=== PATIENT | female | born 2000 | race Caucasian/White ===

== ENCOUNTER 2021-07-13 14:52 | Emergency (ER) | payer MEDICAID ==
[2021-07-13 14:55] VITALS: BP 133/77; PULSE 78; O2SAT 100
--- NOTE | 2021-07-13 15:03 | ERPHSYRPT ---
- History of Present Illness Time Seen by Provider: 07/13/21 15:02 Source: patient, EMS Exam Limitations: no limitations Patient Subjective Stated Complaint: Pt became dizzy at work but did not have LOC Triage Nursing Assessment: Pt brought to the ER by EMS, vitals wnl, denies pain but states that she is slowly getting a headache, reports still being dizzy, pulses normal, reports drinking plenty of fluids, pt states this happened in the past and her bp was low and potassium was low, doesn't appear to be in any distress Physician History: This is a 20-year-old white female who was at work when she had what was desc ribed as a vasovagal reaction. She has had a history of this in the past when her blood pressure dropped or when she has low potassium. Patient states that she has no pain whatsoever. Patient states that she feels fine now. She has no nausea vomiting or diarrhea. Patient states she has been eating and drinking well for her. Patient was brought in to the emergency department by EMS service. Timing/Duration: today Severity: moderate (During the episode) Character of Deficits: none Deficits: no difficulties Baseline/Normal Cognition: alert oriented x 3 Current Cognition: alert oriented x 3 Baseline Gait: walks w/o assistance Associated Symptoms: denies symptoms Allergies/Adverse Reactions: No Known Drug Allergies Allergy (Verified 07/13/21 15:02) Home Medications: No Reportable Medications [No Reported Medications] 07/13/21 [History] Travel Risk - International Travel Have you traveled outside of the country in past 3 weeks: No - Coronavirus Screening Are you exhibiting any of the following symptoms?: No Close contact with a COVID-19 positive Pt in past 14-21 Days: No - Vaccine Status Have you recieved a Covid-19 vaccination: Yes 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[employer] - Vaccination Dates Date of 2cond Vaccination (if applicable): 02/2021 - Review of Systems Constitutional: No Symptoms Eyes: No Symptoms Ears, Nose, & Throat: No Symptoms Respiratory: No Symptoms Cardiac: No Symptoms Abdominal/Gastrointestinal: No Symptoms Genitourinary Symptoms: No Symptoms Musculoskeletal: No Symptoms Skin: No Symptoms Neurological: No Symptoms Psychological: No Symptoms Endocrine: No Symptoms Hematologic/Lymphatic: No Symptoms Immunological/Allergic: No Symptoms All Other Systems: Reviewed and Negative - Past Medical History Pertinent Past Medical History: No - Past Surgical History Past Surgical History: No - Social History Smoking Status: Never smoker Exposure to second hand smoke: No Drug Use: none Patient Lives Alone: No - Female History Hx Last Menstrual Period: 06/27/2021 Hx Now: No (depo) - Nursing Vital Signs Nursing Vital Signs: Initial Vital Signs Temperature 98.9 F 07/13/21 14:53 Pulse Rate 78 07/13/21 14:53 Respiratory Rate 20 07/13/21 14:53 Blood Pressure 133/77 07/13/21 14:53 O2 Sat by Pulse Oximetry 100 07/13/21 14:53 Pain Scale Pain Intensity 0 - [place] Coma Scale Best Eye Response ([place]): (4) open spontaneously Best Verbal Response (Micheal): (5) oriented Best Motor Response (Micheal): (6) obeys commands Micheal Total: 15 - Physical Exam General Appearance: no apparent distress, alert, anxiety, thin Eye Exam: bilateral eye: normal inspection, PERRL, EOMI Ears, Nose, Throat Exam: normal ENT inspection, moist mucous membranes Neck Exam: normal inspection, non-tender, supple, full range of motion Respiratory: normal breath sounds, lungs clear, airway intact, No chest tenderness, No respiratory distress Cardiovascular: regular rate/rhythm, normal heart sounds, normal peripheral pulses Gastrointestinal: soft, normal bowel sounds, No tenderness Pelvic Exam: not done Rectal Exam: not done Back Exam: normal inspection, normal range of motion, No CVA tenderness, No vertebral tenderness Extremity Exam: normal inspection, normal range of motion, No pelvis stable Mental Status: alert, oriented x 3, cooperative asp developer Exam: normal hearing, normal speech, PERRL, tongue midline Coordination/Gait: normal finger to nose, normal gait, normal cerebellar function Motor/Sensory: no motor deficit, no sensory deficit, no pronator drift Skin Exam: normal color, warm, dry SpO2 Interpretation: normal SpO2: 100 O2 Delivery: Room Air - Course Nursing assessment & vital signs reviewed: Yes Ordered Tests: Active Orders 24 hr Category Date Time Status EKG-ER Only STAT Care 07/13/21 15:03 Active IV Insertion STAT Care 07/13/21 15:03 Active CBC W DIFF Stat Lab 07/13/21 15:03 Completed CMP Stat Lab 07/13/21 15:03 Completed ETHYL ALCOHOL Stat Lab 07/13/21 15:03 Completed HCG,QUALITATIVE URINE Stat Lab 07/13/21 15:44 Ordered MAGNESIUM Stat Lab 07/13/21 15:03 Completed UA W/RFX UR CULTURE Stat Lab 07/13/21 15:44 Completed Medication Summary Generic Name Dose Route Start Last Admin Trade Name Viral PRN Reason Stop Dose Admin Sodium Chloride 500 mls @ 500 mls/hr 07/13/21 15:34 07/13/21 15:41 Sodium Chloride 0.9% 500 Ml IV 07/13/21 16:33 500 mls/hr .Q1H ONE Administration Discontinued Medications Generic Name Dose Route Start Last Admin Trade Name Viral PRN Reason Stop Dose Admin Sodium Chloride Confirm 07/13/21 15:39 Sodium Chloride 0.9% 500 Ml Administered 07/13/21 15:40 Dose 500 mls @ ud IV .STK-MED ONE Lab/Rad Data: Laboratory Result Diagrams 07/13/21 15:03 07/13/21 15:03 Laboratory Results 07/13/21 07/13/21 07/13/21 Range/Units 15:44 15:03 15:03 WBC 11.0 H (4.0-10.5) K/mm3 RBC 5.17 (4.1-5.4) M/mm3 Hgb 15.1 (12.0-16.0) gm/dl Hct 45.8 (35-47) % MCV 88.6 (78-100) fl MCH 29.2 (26-32) pg MCHC 33.0 (32-36) g/dl RDW 12.2 (11.5-14.0) % Plt Count 349 (150-450) K/mm3 MPV 10.0 (7.5-11.0) fl Gran % 49.5 (36.0-66.0) % Eos # (Auto) 0.33 (0-0.5) Absolute Lymphs (auto) 4.34 (1.0-4.6) Absolute Monos (auto) 0.85 (0.0-1.3) Lymphocytes % 39.5 (24.0-44.0) % Monocytes % 7.7 (0.0-12.0) % Eosinophils % 3.0 (0.00-5.0) % Basophils % 0.3 (0.0-0.4) % Absolute Granulocytes 5.44 (1.4-6.9) Basophils # 0.03 (0-0.4) Sodium 139 (137-145) mmol/L Potassium 3.7 (3.5-5.1) mmol/L Chloride 103 (98-107) mmol/L Carbon Dioxide 23 (22-30) mmol/L Anion Gap 16.3 H (5-15) MEQ/L BUN 9 (7-17) mg/dL Creatinine 0.78 (0.52-1.04) mg/dL Estimated GFR > 60.0 ML/MIN Glucose 85 (74-106) mg/dL Calcium 9.8 (8.4-10.2) mg/dL Magnesium 2.2 (1.6-2.3) mg/dL Total Bilirubin 0.40 (0.2-1.3) mg/dL AST 26 (14-36) U/L ALT 15 (0-35) U/L Alkaline Phosphatase 66 (38-126) U/L Serum Total Protein 7.8 (6.3-8.2) g/dL Albumin 4.7 (3.5-5.0) g/dL Urine Color YELLOW (YELLOW) Urine Appearance CLOUDY (CLEAR) Urine pH 6.0 (5-6) Ur Specific [place] 1.016 (1.005-1.025) Urine Protein 30 (Negative) Urine Ketones NEGATIVE (NEGATIVE) Urine Blood NEGATIVE (0-5) Miguel A/ul Urine Nitrite NEGATIVE (NEGATIVE) Urine Bilirubin NEGATIVE (NEGATIVE) Urine Urobilinogen NEGATIVE (0-1) mg/dL Ur Leukocyte Esterase NEGATIVE (NEGATIVE) Urine WBC (Auto) 3-5 (0-5) /HPF Urine RBC (Auto) NONE (0-2) /HPF U Epithel Cells (Auto) FEW (FEW) /HPF Urine Bacteria (Auto) MODERATE (NEGATIVE) /HPF Urine Mucus (Auto) SLIGHT (NEGATIVE) /HPF Urine Culture Reflexed NO (NO) Urine Glucose NEGATIVE (NEGATIVE) mg/dL Ethyl Alcohol < 10 (0-10) mg/dL - Progress Progress: improved Progress Note: 07/13/21 16:29 Patient had a negative test yesterday before her Depo-Provera shot. Therefore we will discharge her to home. Counseled pt/family regarding: lab results, diagnosis, need for follow-up - Departure Departure Disposition: Home Clinical Impression: Vasovagal reaction Condition: Stable Critical Care Time: No Referrals: LEO LI [NON-STAFF PHY W/O PRIVILEGES] - Follow up/PCP as directed Additional Instructions: Drink plenty of fluids. Follow-up with your primary care physician for further management.
[2021-07-13 15:26] LABS: ALBUMIN 4.7 g/dL (3.5-5.0); ALKALINE PHOSPHATASE 66 U/L (38-126); ANION GAP 16.3 MEQ/L (5-15); BLOOD UREA NITROGEN 9 mg/dL (7-17); CHLORIDE 103 mmol/L (98-107); Calcium 9.8 mg/dL (8.4-10.2); Carbon Dioxide 23 mmol/L (22-30); Creatinine 1 0.78 mg/dL (0.52-1.04); EST GLOMERULAR FILTRATION RATE > 60.0 ML/MIN; ETHYL ALCOHOL < 10 mg/dL (0-10); Glucose 85 mg/dL (74-106); MAGNESIUM 2.2 mg/dL (1.6-2.3); Potassium 3.7 mmol/L (3.5-5.1); SGOT/AST 26 U/L (14-36); SGPT/ALT 15 U/L (0-35); SODIUM 139 mmol/L (137-145); Total Protein 7.8 g/dL (6.3-8.2)
[2021-07-13 15:27] LABS: Absolute Neutrophil Ct (ANC) 5.44 (1.4-6.9); BASOPHIL % 0.3 % (0.0-0.4); Basophil (Absolute #) 0.03 (0-0.4); Eosinophil (Absolute #) 0.33 (0-0.5); Hematocrit 45.8 % (35-47); Hemoglobin 15.1 gm/dl (12.0-16.0); Lymphocyte (Absolute #) 4.34 (1.0-4.6); Lymphocytes % 39.5 % (24.0-44.0); Mean Cell Volume 88.6 fl (78-100); Mean Corpuscular Hemoglobin 29.2 pg (26-32); Monocyte (Absolute #) 0.85 (0.0-1.3); Monocytes % 7.7 % (0.0-12.0); Neutrophil % 49.5 % (36.0-66.0); Platelet Count 349 K/mm3 (150-450); Red Blood Count 5.17 M/mm3 (4.1-5.4); Red Cell Distribution Width 12.2 % (11.5-14.0)
[2021-07-13] MEDS ORDERED: Sodium Chloride 0.9% 500 ML 500 ML IV ONE (15:39)
[2021-07-13] MEDS: Sodium Chloride 0.9% 500 ML 500 ML IV ONE (15:41)
[2021-07-13 16:17] LABS: Appearance CLOUDY (CLEAR); Bacteria MODERATE /HPF (NEGATIVE); Bilirubin NEGATIVE (NEGATIVE); Blood NEGATIVE Ery/ul (0-5); Epithelial Cells FEW /HPF (FEW); Glucose NEGATIVE (NEGATIVE); Ketones NEGATIVE (NEGATIVE); Leukocyte Esterase NEGATIVE (NEGATIVE); Mucus SLIGHT /HPF (NEGATIVE); Nitrite NEGATIVE (NEGATIVE); Protein,Urine Dip 30 (Negative); Specific Gravity 1.016 (1.005-1.025); Urobilinogen NEGATIVE mg/dL (0-1)
== END 2021-07-13 16:47 | disposition home or self-care (01) ==
LOC: ED 14:52
DX: R55 Syncope and collapse (principal)
CPT/HCPCS: 36415; 80053; 80307; 81001; 83735; 85025; 93005; 99284; G0480

== ENCOUNTER 2021-08-20 14:34 | Emergency (ER) | payer MEDICAID ==
[2021-08-20 14:49] VITALS: O2SAT 97
[2021-08-20] MEDS ORDERED: Zofran 4 MG/2 ML VIAL IV ONE (15:15)
[2021-08-20] MEDS ORDERED: Lactated Ringers 1,000 ML IV ONE ×2 (15:15→15:16)
[2021-08-20] MEDS ORDERED: Zofran 4 MG/2 ML VIAL ONE (15:16)
--- NOTE | 2021-08-20 15:30 | ERPHSYRPT ---
- History of Present Illness Time Seen by Provider: 08/20/21 14:38 Source: patient Exam Limitations: no limitations Patient Subjective Stated Complaint: Vomiting Triage Nursing Assessment: Patient ambulated back to ED and transferred self to bed. Patient A+O x3. Patient's skin pink, warm and dry. Patient complains of vomiting since 0900. Patient states she received her COVID 19 Pfiser booster yesterday and woke up today with N/V and abdominal pain. Patient states she had one episode of diarrhea. Abdomen soft and round with BS X 4. Patient complains of abdominal pain 5/10. Physician History: 20 years old healthy female presented in the ER with chief complaint of gastroenteritis symptoms sudden onset this morning with multiple episodes of nonprojectile, nonbilious vomiting without hematemesis and some loose stool. She is also complaining of off-and-on mild to moderate abdominal cramping. Patient reports she received her booster Covid shots yesterday. Denies any fever chills but generalized weakness fatigue and tiredness. Minimal abdominal discomfort at present. Denies any sick contact. Timing/Duration: today, intermittent, gradual onset, worse Severity: moderate Modifying Factors: Improves With: rest Associated Symptoms: nausea, vomiting, abdominal pain, weakness Allergies/Adverse Reactions: nickel Allergy (Verified 08/20/21 14:44) Hx Influenza Vaccination/Date Given: No Hx Pneumococcal Vaccination/Date Given: No Immunizations Up to Date: Yes Travel Risk - International Travel Have you traveled outside of the country in past 3 weeks: No - Coronavirus Screening Are you exhibiting any of the following symptoms?: No Symptoms: Shortness of Breath - Vaccine Status Have you recieved a Covid-19 vaccination: Yes 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[employer] - Vaccination Dates Date of 2cond Vaccination (if applicable): 02/2021 Comment: Booster of Pfizer on 08/19/2021 - Review of Systems Constitutional: Fatigue, Weakness Eyes: No Symptoms Ears, Nose, & Throat: No Symptoms Respiratory: No Symptoms Cardiac: No Symptoms Abdominal/Gastrointestinal: Abdominal Pain, Nausea, Vomiting, Diarrhea Genitourinary Symptoms: No Symptoms Musculoskeletal: No Symptoms Skin: No Symptoms Neurological: No Symptoms Psychological: No Symptoms Endocrine: No Symptoms Hematologic/Lymphatic: No Symptoms Immunological/Allergic: No Symptoms - Past Medical History Pertinent Past Medical History: No - Past Surgical History Past Surgical History: No - Social History Smoking Status: Never smoker Exposure to second hand smoke: No Drug Use: none Patient Lives Alone: No - Female History Hx Now: No - Nursing Vital Signs Nursing Vital Signs: Initial Vital Signs Temperature 98.1 F 08/20/21 14:44 Pulse Rate 107 H 08/20/21 14:44 Respiratory Rate 18 08/20/21 14:44 Blood Pressure 142/84 08/20/21 14:44 O2 Sat by Pulse Oximetry 97 08/20/21 14:44 Pain Scale Pain Intensity 3 - Physical Exam General Appearance: no apparent distress, alert Eye Exam: PERRL/EOMI Ears, Nose, Throat Exam: normal ENT inspection, TMs normal, pharynx normal, moist mucous membranes Neck Exam: normal inspection, non-tender, supple, full range of motion Respiratory Exam: normal breath sounds, lungs clear Cardiovascular Exam: normal heart sounds, tachycardia Gastrointestinal/Abdomen Exam: soft, normal bowel sounds, No tenderness, No guarding, No rebound Back Exam: normal inspection, normal range of motion Extremity Exam: normal inspection, normal range of motion Neurologic Exam: alert, oriented x 3, 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, 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 Skin Exam: normal color SpO2 Interpretation: normal SpO2: 97 O2 Delivery: Room Air Ordered Tests: Medication Summary Discontinued Medications Generic Name Dose Route Start Last Admin Trade Name Viral PRN Reason Stop Dose Admin Lactated Ringer's 1,000 mls @ 999 mls/hr 08/20/21 15:15 08/20/21 16:41 Lactated Ringers IV 08/20/21 16:15 Infused .Q1H1M ONE Infusion Lactated Ringer's Confirm 08/20/21 15:16 Lactated Ringers Administered 08/20/21 15:17 Dose 1,000 mls @ ud IV .STK-MED ONE Ondansetron HCl 4 mg 08/20/21 15:15 08/20/21 15:18 Ondansetron Hcl 4 Mg/2 Ml Vial IV 08/20/21 15:16 4 mg STAT ONE Administration Ondansetron HCl Confirm 08/20/21 15:16 Ondansetron Hcl 4 Mg/2 Ml Vial Administered 08/20/21 15:17 Dose 4 mg .ROUTE .STK-MED ONE Lab/Rad Data: Laboratory Result Diagrams 08/20/21 15:16 08/20/21 15:16 Laboratory Results 08/20/21 08/20/21 08/20/21 Range/Units 15:16 15:16 14:30 WBC 16.2 H (4.0-10.5) K/mm3 RBC 4.74 (4.1-5.4) M/mm3 Hgb 13.9 (12.0-16.0) gm/dl Hct 42.1 (35-47) % MCV 88.8 (78-100) fl MCH 29.3 (26-32) pg MCHC 33.0 (32-36) g/dl RDW 11.7 (11.5-14.0) % Plt Count 320 (150-450) K/mm3 MPV 9.9 (7.5-11.0) fl Gran % 91.0 H (36.0-66.0) % Eos # (Auto) 0.01 (0-0.5) Absolute Lymphs (auto) 0.40 L (1.0-4.6) Absolute Monos (auto) 1.02 (0.0-1.3) Lymphocytes % 2.5 L (24.0-44.0) % Monocytes % 6.3 (0.0-12.0) % Eosinophils % 0.1 (0.00-5.0) % Basophils % 0.1 (0.0-0.4) % Absolute Granulocytes 14.79 H (1.4-6.9) Basophils # 0.01 (0-0.4) Sodium 140 (137-145) mmol/L Potassium 4.1 (3.5-5.1) mmol/L Chloride 105 (98-107) mmol/L Carbon Dioxide 21 L (22-30) mmol/L Anion Gap 17.1 H (5-15) MEQ/L BUN 11 (7-17) mg/dL Creatinine 0.62 (0.52-1.04) mg/dL Estimated GFR > 60.0 ML/MIN Glucose 111 H (74-106) mg/dL Calcium 9.5 (8.4-10.2) mg/dL Total Bilirubin 0.50 (0.2-1.3) mg/dL AST 26 (14-36) U/L ALT 20 (0-35) U/L Alkaline Phosphatase 88 (38-126) U/L Serum Total Protein 7.4 (6.3-8.2) g/dL Albumin 4.5 (3.5-5.0) g/dL Amylase 56 (30-110) U/L Lipase 102 (23-300) U/L Urine Color (YELLOW) Urine Appearance (CLEAR) Urine pH (5-6) Ur Specific [place] (1.005-1.025) Urine Protein (Negative) Urine Ketones (NEGATIVE) Urine Blood (0-5) Miguel A/ul Urine Nitrite (NEGATIVE) Urine Bilirubin (NEGATIVE) Urine Urobilinogen (0-1) mg/dL Ur Leukocyte Esterase (NEGATIVE) Urine WBC (Auto) (0-5) /HPF Urine RBC (Auto) (0-2) /HPF U Epithel Cells (Auto) (FEW) /HPF Urine Bacteria (Auto) (NEGATIVE) /HPF Calcium Oxalate Crystal (NEGATIVE) /HPF Amorphous Crystals (NEGATIVE) /HPF Urine Mucus (Auto) (NEGATIVE) /HPF Urine Culture Reflexed (NO) Urine Glucose (NEGATIVE) mg/dL Urine HCG, Qual NEGATIVE (Negative) Slides for Path Review YES 08/20/21 Range/Units 14:30 WBC (4.0-10.5) K/mm3 RBC (4.1-5.4) M/mm3 Hgb (12.0-16.0) gm/dl Hct (35-47) % MCV (78-100) fl MCH (26-32) pg MCHC (32-36) g/dl RDW (11.5-14.0) % Plt Count (150-450) K/mm3 MPV (7.5-11.0) fl Gran % (36.0-66.0) % Eos # (Auto) (0-0.5) Absolute Lymphs (auto) (1.0-4.6) Absolute Monos (auto) (0.0-1.3) Lymphocytes % (24.0-44.0) % Monocytes % (0.0-12.0) % Eosinophils % (0.00-5.0) % Basophils % (0.0-0.4) % Absolute Granulocytes (1.4-6.9) Basophils # (0-0.4) Sodium (137-145) mmol/L Potassium (3.5-5.1) mmol/L Chloride (98-107) mmol/L Carbon Dioxide (22-30) mmol/L Anion Gap (5-15) MEQ/L BUN (7-17) mg/dL Creatinine (0.52-1.04) mg/dL Estimated GFR ML/MIN Glucose (74-106) mg/dL Calcium (8.4-10.2) mg/dL Total Bilirubin (0.2-1.3) mg/dL AST (14-36) U/L ALT (0-35) U/L Alkaline Phosphatase (38-126) U/L Serum Total Protein (6.3-8.2) g/dL Albumin (3.5-5.0) g/dL Amylase (30-110) U/L Lipase (23-300) U/L Urine Color YELLOW (YELLOW) Urine Appearance TURBID (CLEAR) Urine pH 5.0 (5-6) Ur Specific [place] 1.027 (1.005-1.025) Urine Protein 30 (Negative) Urine Ketones TRACE (NEGATIVE) Urine Blood NEGATIVE (0-5) Miguel A/ul Urine Nitrite NEGATIVE (NEGATIVE) Urine Bilirubin NEGATIVE (NEGATIVE) Urine Urobilinogen NEGATIVE (0-1) mg/dL Ur Leukocyte Esterase NEGATIVE (NEGATIVE) Urine WBC (Auto) NONE SEEN (0-5) /HPF Urine RBC (Auto) 3-5 (0-2) /HPF U Epithel Cells (Auto) RARE (FEW) /HPF Urine Bacteria (Auto) NONE SEEN (NEGATIVE) /HPF Calcium Oxalate Crystal 11-25 (NEGATIVE) /HPF Amorphous Crystals MODERATE (NEGATIVE) /HPF Urine Mucus (Auto) MANY (NEGATIVE) /HPF Urine Culture Reflexed NO (NO) Urine Glucose NEGATIVE (NEGATIVE) mg/dL Urine HCG, Qual (Negative) Slides for Path Review - Progress Progress: improved, re-examined Progress Note: 08/20/21 17:28 20-year-old is evaluated for nausea vomiting and diarrhea with some abdominal cramping operative hemoglobin shocked yesterday. She is given Zofran and fluid bolus, on reevaluation feeling much better. She does not want any pain me dication. Abdominal exam is soft nontender with good bowel sounds in all 4 quadrants. No vomiting or diarrhea while in the ER. Has a white count of 16 and some element of dehydration in the chemistries. Do not think she needs imaging of abdomen and her white count is probably reactive, discussed signs symptoms of worsening needing return to ER which she seems understanding. We will plan to take as needed. Counseled pt/family regarding: lab results, diagnosis, need for follow-up - Departure Departure Disposition: Home Clinical Impression: Gastroenteritis Condition: Stable Critical Care Time: No Referrals: CARLEEN PALMER NP [Primary Care Provider] - Follow Up with PCP/3 days Instructions: Viral Gastroenteritis, Adult (DC) Additional Instructions: Plenty of fluids. Take Zofran/Tylenol as needed. Follow-up with primary care for reevaluation. Return to ER for worsening vomiting/diarrhea/abdominal pain or if develop fever chills etc. Prescriptions: Ondansetron ODT 4 MG [Zofran Odt 4 mg] 1 ea PO QIDPRN PRN #7 tablet PRN Reason: n/v
[2021-08-20 15:36] LABS: Absolute Neutrophil Ct (ANC) 14.79 (1.4-6.9); Basophil (Absolute #) 0.01 (0-0.4); Eosinophil % 0.1 % (0.00-5.0); Eosinophil (Absolute #) 0.01 (0-0.5); Hematocrit 42.1 % (35-47); Hemoglobin 13.9 gm/dl (12.0-16.0); Lymphocytes % 2.5 % (24.0-44.0); Mean Cell Volume 88.8 fl (78-100); Mean Corpuscular Hemoglobin 29.3 pg (26-32); Mean Platelet Volume 9.9 fl (7.5-11.0); Monocyte (Absolute #) 1.02 (0.0-1.3); Monocytes % 6.3 % (0.0-12.0); Platelet Count 320 K/mm3 (150-450); Red Blood Count 4.74 M/mm3 (4.1-5.4); Red Cell Distribution Width 11.7 % (11.5-14.0); White Blood Count 16.2 K/mm3 (4.0-10.5)
[2021-08-20 15:46] LABS: ALBUMIN 4.5 g/dL (3.5-5.0); ALKALINE PHOSPHATASE 88 U/L (38-126); AMYLASE 56 U/L (30-110); ANION GAP 17.1 MEQ/L (5-15); BLOOD UREA NITROGEN 11 mg/dL (7-17); CHLORIDE 105 mmol/L (98-107); Calcium 9.5 mg/dL (8.4-10.2); Carbon Dioxide 21 mmol/L (22-30); Creatinine 1 0.62 mg/dL (0.52-1.04); EST GLOMERULAR FILTRATION RATE > 60.0 ML/MIN; Glucose 111 mg/dL (74-106); LIPASE 102 U/L (23-300); Potassium 4.1 mmol/L (3.5-5.1); SGOT/AST 26 U/L (14-36); SGPT/ALT 20 U/L (0-35); SODIUM 140 mmol/L (137-145); Total Protein 7.4 g/dL (6.3-8.2)
[2021-08-20 15:48] LABS: Amourphous Crystal MODERATE /HPF (NEGATIVE); Appearance TURBID (CLEAR); Bilirubin NEGATIVE (NEGATIVE); Blood NEGATIVE Ery/ul (0-5); Epithelial Cells RARE /HPF (FEW); Glucose NEGATIVE (NEGATIVE); Ketones TRACE (NEGATIVE); Leukocyte Esterase NEGATIVE (NEGATIVE); Mucus MANY /HPF (NEGATIVE); Nitrite NEGATIVE (NEGATIVE); Protein,Urine Dip 30 (Negative); Specific Gravity 1.027 (1.005-1.025); Urobilinogen NEGATIVE mg/dL (0-1)
[2021-08-20 15:48] LABS: Slide Review 1 YES
[2021-08-20 15:49] LABS: Bacteria NONE SEEN /HPF (NEGATIVE); WBC NONE SEEN /HPF (0-5)
[2021-08-20 17:36] VITALS: BP 106/69; PULSE 96
== END 2021-08-20 17:54 | disposition home or self-care (01) ==
LOC: ED 14:34
DX: K52.9 Noninfective gastroenteritis and colitis, unspecified (principal); R11.2 Nausea with vomiting, unspecified; R10.84 Generalized abdominal pain
CPT/HCPCS: 36000; 36415; 80053; 81001; 82150; 83690; 84703; 85025; 96360; 96374; 99284; 99291; J2405

== ENCOUNTER 2022-05-10 08:04 | Emergency (ER) | payer MEDICAID ==
[2022-05-10] MEDS ORDERED: Hydromorphone 1 mg/ml Injection IV ONE (08:22)
[2022-05-10] MEDS ORDERED: Sodium Chloride 0.9% 1000 ML 1,000 ML IV STA (08:22)
[2022-05-10] MEDS ORDERED: Reglan 10 MG/2 ML IV ONE (08:25)
[2022-05-10] MEDS ORDERED: Hydromorphone 1 mg/ml Injection ONE (08:37)
[2022-05-10] MEDS ORDERED: Sodium Chloride 0.9% 1000 ML 1,000 ML ONE (08:38)
[2022-05-10] MEDS ORDERED: Reglan 10 MG/2 ML ONE (08:38)
[2022-05-10 08:43] LABS: Absolute Neutrophil Ct (ANC) 4.75 x10^3/uL (1.4-6.9); Basophil (Absolute #) 0.03 x10^3/uL (0-0.4); Eosinophil (Absolute #) 0 x10^3/uL (0-0.5); Hematocrit 40.5 % (35-47); Hemoglobin 13.7 g/dL (12.0-16.0); Lymphocytes % 11.4 % (24.0-44.0); Mean Cell Volume 87.7 fL (78-100); Mean Corpuscular Hemoglobin 29.7 pg (26-32); Mean Corpuscular Hgb Concent. 33.8 g/dL (32-36); Mean Platelet Volume 9.1 fL (7.5-11.0); Monocyte (Absolute #) 0.61 x10^3/uL (0.0-1.3); Neutrophil % 77.6 % (36.0-66.0); Platelet Count 218 x10^3/uL (150-450); Red Blood Count 4.62 x10^6/uL (4.1-5.4); Red Cell Distribution Width 12.1 % (11.5-14.0); White Blood Count 6.1 x10^3/uL (4.0-10.5)
[2022-05-10 08:50] LABS: Bacteria FEW /HPF (NEGATIVE); Epithelial Cells FEW /HPF (FEW); Mucus MANY /HPF (NEGATIVE)
[2022-05-10 08:53] LABS: ALBUMIN 4.2 g/dL (3.5-5.0); ALKALINE PHOSPHATASE 77 U/L (38-126); AMYLASE 66 U/L (30-110); ANION GAP 14.3 MEQ/L (5-15); BLOOD UREA NITROGEN 4 mg/dL (7-17); CHLORIDE 105 mmol/L (98-107); Calcium 8.9 mg/dL (8.4-10.2); Carbon Dioxide 19 mmol/L (22-30); Creatinine 1 0.58 mg/dL (0.52-1.04); EST GLOMERULAR FILTRATION RATE > 60.0 ML/MIN; Glucose 116 mg/dL (74-106); LIPASE 77 U/L (23-300); Potassium 3.5 mmol/L (3.5-5.1); SGOT/AST 31 U/L (14-36); SGPT/ALT 23 U/L (0-35); SODIUM 135 mmol/L (137-145); Total Protein 7.4 g/dL (6.3-8.2)
[2022-05-10 08:53] LABS: Appearance CLOUDY (CLEAR); Glucose NEGATIVE (NEGATIVE)
[2022-05-10 08:54] LABS: Bilirubin SMALL (NEGATIVE); Dipstick done @ ? MAIN LAB; Ketones TRACE (NEGATIVE); Nitrite NEGATIVE (NEGATIVE); Ph 6.5 (5-6); Protein,Urine Dip 100 (Negative); RBC MODERATE Ery/ul (0-5); Specific Gravity 1.025 (1.005-1.025); Urobilinogen 1 mg/dL (0-1)
[2022-05-10 08:56] LABS: Urine Cultured Indicated? YES
--- NOTE | 2022-05-10 09:34 | ERPHSYRPT ---
- History of Present Illness Time Seen by Provider: 05/10/22 08:15 Historian: patient Exam Limitations: no limitations Patient Subjective Stated Complaint: Pt was on her way to work at [employer] 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 She vomited x1 this morning and decided to come to the ER. She has had some chills and sweats. Timing/Duration: week(s) (2 weeks), worse Abdominal Pain Onset Location: suprapubic Pain Radiation: no radiation Severity of Pain-Max: moderate Severity of Pain-Current: moderate Modifying Factors: Improves With: nothing Allergies/Adverse Reactions: nickel Allergy (Verified 05/10/22 08:22) Home Medications: Escitalopram Oxalate [Lexapro] 10 mg PO DAILY 05/10/22 [History] Hx Influenza Vaccination/Date Given: No Hx Pneumococcal Vaccination/Date Given: No Immunizations Up to Date: Yes Travel Risk - International Travel Have you traveled outside of the country in past 3 weeks: No - Coronavirus Screening Are you exhibiting any of the following symptoms?: Yes Symptoms: Vomiting/Diarrhea Close contact with a COVID-19 positive Pt in past 14-21 Days: No - Vaccine Status Have you recieved a Covid-19 vaccination: Yes 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: [employer] - Vaccination Dates Date of 2cond Vaccination (if applicable): 02/2021 Comment: Booster of Pfizer on 08/19/2021 - Review of Systems Constitutional: No Fever, No Chills Eyes: No Symptoms Ears, Nose, & Throat: No Symptoms Respiratory: No Cough, No Dyspnea Cardiac: No Chest Pain, No Edema, No Syncope Abdominal/Gastrointestinal: No Abdominal Pain, No Nausea, No Vomiting, No Diarrhea Genitourinary Symptoms: No Dysuria Musculoskeletal: No Back Pain, No Neck Pain Skin: No Rash Neurological: No Dizziness, No Focal Weakness, No Sensory Changes Psychological: No Symptoms Endocrine: No Symptoms All Other Systems: Reviewed and Negative - Past Medical History Pertinent Past Medical History: Yes Psycho-Social History: Anxiety, Depression - Past Surgical History Past Surgical History: No - Social History Smoking Status: Never smoker Exposure to second hand smoke: No Drug Use: none Patient Lives Alone: Yes - Female History Hx Now: No - Nursing Vital Signs Nursing Vital Signs: Initial Vital Signs Temperature 98.8 F 05/10/22 08:10 Pulse Rate 79 05/10/22 08:10 Blood Pressure 115/71 05/10/22 08:10 O2 Sat by Pulse Oximetry 96 05/10/22 08:10 Pain Scale Pain Intensity 4 - Physical Exam General Appearance: mild distress Eye Exam: PERRL/EOMI, eyes nml inspection Ears, Nose, Throat Exam: normal ENT inspection, pharynx normal, moist mucous membranes Neck Exam: normal inspection, non-tender, supple, full range of motion Respiratory Exam: normal breath sounds, lungs clear, No respiratory distress Cardiovascular Exam: regular rate/rhythm, normal heart sounds Gastrointestinal/Abdomen Exam: normal bowel sounds, tenderness, guarding, rebound (Tenderness with guarding rebound in the lower quadrants.) Back Exam: normal inspection, normal range of motion, No CVA tenderness, No vertebral tenderness Extremity Exam: normal inspection, normal range of motion, pelvis stable Neurologic Exam: alert, oriented x 3, cooperative, normal mood/affect, nml cerebellar function, sensation nml, No motor deficits Skin Exam: normal color, warm, dry SpO2 Interpretation: normal SpO2: 96 O2 Delivery: Room Air - Course Nursing assessment & vital signs reviewed: Yes Ordered Tests: Active Orders 24 hr Category Date Time Status IV Insertion STAT Care 05/10/22 08:22 Active ABDOMEN AND PELVIS W/0 CONTRAS [CT] Stat Exams 05/10/22 08:23 Completed AMYLASE Stat Lab 05/10/22 08:30 Completed CBC W DIFF Stat Lab 05/10/22 08:30 Completed CMP Stat Lab 05/10/22 08:30 Completed CULTURE,URINE Stat Lab 05/10/22 08:29 Received HCG,QUALITATIVE URINE Stat Lab 05/10/22 08:29 Completed LIPASE Stat Lab 05/10/22 08:30 Completed Lactic Acid Stat Lab 05/10/22 08:22 Completed UA W/RFX CULTURE Stat Lab 05/10/22 08:29 Completed Medication Summary Discontinued Medications Generic Name Dose Route Start Last Admin Trade Name Viral PRN Reason Stop Dose Admin Hydromorphone HCl 0.5 mg 05/10/22 08:22 05/10/22 08:40 Hydromorphone 1 Mg/1ml Inj 1 Mg/Ml Syringe IV 05/10/22 08:23 0.5 mg STAT ONE Administration Hydromorphone HCl Confirm 05/10/22 08:37 Hydromorphone 1 Mg/1ml Inj 1 Mg/Ml Syringe Administered 05/10/22 08:38 Dose 1 mg .ROUTE .STK-MED ONE Sodium Chloride 1,000 mls @ 999 mls/hr 05/10/22 08:22 05/10/22 08:39 Sodium Chloride 0.9% 1000 Ml IV 05/10/22 09:22 999 mls/hr .Q1H1M STA Administration Sodium Chloride Confirm 05/10/22 08:38 Sodium Chloride 0.9% 1000 Ml Administered 05/10/22 08:39 Dose 1,000 mls @ ud .ROUTE .STK-MED ONE Metoclopramide HCl 10 mg 05/10/22 08:25 05/10/22 08:40 Metoclopramide Hcl 10 Mg/2 Ml Vial IV 05/10/22 08:26 10 mg STAT ONE Administration Metoclopramide HCl Confirm 05/10/22 08:38 Metoclopramide Hcl 10 Mg/2 Ml Vial Administered 05/10/22 08:39 Dose 10 mg .ROUTE .STK-MED ONE Lab/Rad Data: Laboratory Result Diagrams 05/10/22 08:30 05/10/22 08:30 Laboratory Results 05/10/22 05/10/22 05/10/22 Range/Units 08:30 08:30 08:29 WBC 6.1 (4.0-10.5) x10^3/uL RBC 4.62 (4.1-5.4) x10^6/uL Hgb 13.7 (12.0-16.0) g/dL Hct 40.5 (35-47) % MCV 87.7 (78-100) fL MCH 29.7 (26-32) pg MCHC 33.8 (32-36) g/dL RDW 12.1 (11.5-14.0) % Plt Count 218 (150-450) x10^3/uL MPV 9.1 (7.5-11.0) fL Gran % 77.6 H (36.0-66.0) % Immature Gran % (Auto) 0.5 H (0.00-0.4) % Nucleat RBC Rel Count 0.0 (0.00-0.1) % Eos # (Auto) 0 (0-0.5) x10^3/uL Immature Gran # (Auto) 0.03 (0.00-0.03) x10^3u/L Absolute Lymphs (auto) 0.70 L (1.0-4.6) x10^3/uL Absolute Monos (auto) 0.61 (0.0-1.3) x10^3/uL Absolute Nucleated RBC 0.00 (0.00-0.01) x10^3u/L Lymphocytes % 11.4 L (24.0-44.0) % Monocytes % 10.0 (0.0-12.0) % Eosinophils % 0.0 (0.00-5.0) % Basophils % 0.5 (0.0-0.4) % Absolute Granulocytes 4.75 (1.4-6.9) x10^3/uL Basophils # 0.03 (0-0.4) x10^3/uL Sodium 135 L (137-145) mmol/L Potassium 3.5 (3.5-5.1) mmol/L Chloride 105 (98-107) mmol/L Carbon Dioxide 19 L (22-30) mmol/L Anion Gap 14.3 (5-15) MEQ/L BUN 4 L (7-17) mg/dL Creatinine 0.58 (0.52-1.04) mg/dL Estimated GFR > 60.0 ML/MIN Glucose 116 H (74-106) mg/dL Lactic Acid (0.4-2.0) Calcium 8.9 (8.4-10.2) mg/dL Total Bilirubin 0.40 (0.2-1.3) mg/dL AST 31 (14-36) U/L ALT 23 (0-35) U/L Alkaline Phosphatase 77 (38-126) U/L Serum Total Protein 7.4 (6.3-8.2) g/dL Albumin 4.2 (3.5-5.0) g/dL Amylase 66 (30-110) U/L Lipase 77 (23-300) U/L Urinalys Dipstick Clnc MAIN LAB Urine Color YELLOW (YELLOW) Urine Appearance CLOUDY (CLEAR) Urine pH 6.5 (5-6) Ur Specific [place] 1.025 (1.005-1.025) POC Urine Protein Conf 100 (Negative) Urine Ketones TRACE (NEGATIVE) Urine Nitrite NEGATIVE (NEGATIVE) Urine Bilirubin SMALL (NEGATIVE) Urine Urobilinogen 1 (0-1) mg/dL Urine Leukocytes TRACE (NEGATIVE) Urine WBC (Auto) 16-25 (0-5) /HPF Urine RBC (Auto) 3-5 (0-2) /HPF U Hyaline Cast (Auto) 11-25 (0-2) /LPF U Epithel Cells (Auto) FEW (FEW) /HPF Urine Bacteria (Auto) FEW (NEGATIVE) /HPF Urine RBC MODERATE (0-5) Miguel A/ul Unidentified Crystals 2-5 (NEGATIVE) /HPF Granular Casts (Auto) 5-10 (NEGATIVE) /LPF Urine Mucus (Auto) MANY (NEGATIVE) /HPF Ur Culture Indicated? YES Urine Glucose NEGATIVE (NEGATIVE) mg/dL Urine HCG, Qual (Negative) 05/10/22 05/10/22 Range/Units 08:29 08:22 WBC (4.0-10.5) x10^3/uL RBC (4.1-5.4) x10^6/uL Hgb (12.0-16.0) g/dL Hct (35-47) % MCV (78-100) fL MCH (26-32) pg MCHC (32-36) g/dL RDW (11.5-14.0) % Plt Count (150-450) x10^3/uL MPV (7.5-11.0) fL Gran % (36.0-66.0) % Immature Gran % (Auto) (0.00-0.4) % Nucleat RBC Rel Count (0.00-0.1) % Eos # (Auto) (0-0.5) x10^3/uL Immature Gran # (Auto) (0.00-0.03) x10^3u/L Absolute Lymphs (auto) (1.0-4.6) x10^3/uL Absolute Monos (auto) (0.0-1.3) x10^3/uL Absolute Nucleated RBC (0.00-0.01) x10^3u/L Lymphocytes % (24.0-44.0) % Monocytes % (0.0-12.0) % Eosinophils % (0.00-5.0) % Basophils % (0.0-0.4) % Absolute Granulocytes (1.4-6.9) x10^3/uL Basophils # (0-0.4) x10^3/uL Sodium (137-145) mmol/L Potassium (3.5-5.1) mmol/L Chloride (98-107) mmol/L Carbon Dioxide (22-30) mmol/L Anion Gap (5-15) MEQ/L BUN (7-17) mg/dL Creatinine (0.52-1.04) mg/dL Estimated GFR ML/MIN Glucose (74-106) mg/dL Lactic Acid 1.5 (0.4-2.0) Calcium (8.4-10.2) mg/dL Total Bilirubin (0.2-1.3) mg/dL AST (14-36) U/L ALT (0-35) U/L Alkaline Phosphatase (38-126) U/L Serum Total Protein (6.3-8.2) g/dL Albumin (3.5-5.0) g/dL Amylase (30-110) U/L Lipase (23-300) U/L Urinalys Dipstick Clnc Urine Color (YELLOW) Urine Appearance (CLEAR) Urine pH (5-6) Ur Specific [place] (1.005-1.025) POC Urine Protein Conf (Negative) Urine Ketones (NEGATIVE) Urine Nitrite (NEGATIVE) Urine Bilirubin (NEGATIVE) Urine Urobilinogen (0-1) mg/dL Urine Leukocytes (NEGATIVE) Urine WBC (Auto) (0-5) /HPF Urine RBC (Auto) (0-2) /HPF U Hyaline Cast (Auto) (0-2) /LPF U Epithel Cells (Auto) (FEW) /HPF Urine Bacteria (Auto) (NEGATIVE) /HPF Urine RBC (0-5) Miguel A/ul Unidentified Crystals (NEGATIVE) /HPF Granular Casts (Auto) (NEGATIVE) /LPF Urine Mucus (Auto) (NEGATIVE) /HPF Ur Culture Indicated? Urine Glucose (NEGATIVE) mg/dL Urine HCG, Qual NEGATIVE (Negative) - Progress Progress: unchanged - Departure Departure Disposition: Home Clinical Impression: Urinary tract infection Condition: Stable Critical Care Time: No Referrals: CARLEEN PALMER W[employer] P[employer] MIXER [Primary Care Provider] - Follow up/PCP as directed Instructions: Urinary Tract Infection, Adult (DC) Forms: Work/School Release Form Prescriptions: Smz/Tmp Ds Tablet [Bactrim Ds Tablet] 1 udtab PO BID #14 tablet Metoclopramide HCl 10 mg [Reglan 10 MG] 10 mg PO Q8H 5 Days #15 tablet
--- NOTE | 2022-05-10 09:43 | XRAY ---
Indication: Vomiting and abdominal pain. Multiple contiguous axial images obtained through the abdomen and pelvis without contrast. Comparison: None Lung bases clear. Heart not enlarged. Noncontrasted stomach and bowel loops appear nonobstructed. Normal air-filled appendix. No free fluid/air. Remaining liver, gallbladder, pancreas, spleen, adrenal glands, kidneys, ureters, bladder, uterus, and aorta are unremarkable for noncontrast exam. Osseous structures intact. No ventral or inguinal hernias. Impression: Negative CT abdomen/pelvis without contrast exam.
[2022-05-10 10:51] VITALS: BP 116/69; PULSE 80; O2SAT 99
== END 2022-05-10 10:53 | disposition home or self-care (01) ==
LOC: ED 08:04
DX: N39.0 Urinary tract infection, site not specified (principal); R10.30 Lower abdominal pain, unspecified; R11.2 Nausea with vomiting, unspecified
CPT/HCPCS: 36000; 36415; 74176; 80053; 81015; 81025; 82150; 83605; 83690; 85025; 87086; 96360; 96374; 96375; 99284; J1170

== ENCOUNTER 2022-08-04 02:33 | Emergency (ER) | payer MEDICAID ==
[2022-08-04 02:52] VITALS: O2SAT 99
[2022-08-04] MEDS ORDERED: TYLENOL 325 MG PO ONE (03:15)
[2022-08-04] MEDS ORDERED: ZOFRAN ODT 4 MG PO ONE (03:15)
[2022-08-04] MEDS ORDERED: TYLENOL 325 MG ONE (03:19)
[2022-08-04] MEDS ORDERED: ZOFRAN ODT 4 MG ONE (03:19)
--- NOTE | 2022-08-04 03:23 | ERPHSYRPT ---
- History of Present Illness Time Seen by Provider: 08/04/22 02:49 Source: patient Exam Limitations: no limitations Patient Subjective Stated Complaint: pt states "I was at court this morning and I hit my head on the concrete wall." Triage Nursing Assessment: pt ambulatory to bed by self, pt c/o headache after hitting her head on a concrete wall at 0930 yesterday, pt has no other symptoms other than headache, pt rating pain 8/10, pt has not taken any pain relievers, pupils PERRL Physician History: 21yo F w/ no significant PMH presents to the ER w/ worsening GIBBONS after hitting her head off of a concrete wall around 0830 this morning. Patient reports almost an instant headache that has been worsening since the incident. She denies any LOC. Patient reports blurry vision since the incident. She denies any paresthe fausto or upper or lower extremity weakness. She has had some nausea but no episodes of emesis. Patient also reports occasional dizziness and difficulty concentrating but no issues with balance. Light is occasionally bothering her but sound has not caused her issues yet. She denies any history of concussion. Occurred: this morning (0830) Severity: moderate Head Injury Location: occipital (left) Method of Injury: direct blow Loss of Consciousness: no loss of consciousness Associated Symptoms: nausea, headaches, No vomiting Allergies/Adverse Reactions: nickel Allergy (Verified 08/04/22 02:43) Hx Tetanus, Diphtheria Vaccination/Date Given: No Hx Influenza Vaccination/Date Given: No Hx Pneumococcal Vaccination/Date Given: No Immunizations Up to Date: Yes Travel Risk - International Travel Have you traveled outside of the country in past 3 weeks: No - Coronavirus Screening Are you exhibiting any of the following symptoms?: No Close contact with a COVID-19 positive Pt in past 14-21 Days: No - Vaccine Status Have you recieved a Covid-19 vaccination: Yes 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 - Vaccination Dates Date of 2cond Vaccination (if applicable): 02/2021 Comment: Booster of Pfizer on 08/19/2021 - Review of Systems Constitutional: Fatigue, No Fever, No Chills Eyes: Photophobia, Vision Changes, No Eye Pain, No Eye Redness Respiratory: No Symptoms Cardiac: No Symptoms Abdominal/Gastrointestinal: Nausea, No Vomiting Genitourinary Symptoms: No Symptoms Neurological: Dizziness, Headache, No Focal Weakness, No Gait Changes, No Parasthesia, No Sensory Changes, No Speech Changes Hematologic/Lymphatic: No Symptoms - Past Medical History Pertinent Past Medical History: Yes Psycho-Social History: Anxiety, Depression - Past Surgical History Past Surgical History: No - Social History Smoking Status: Never smoker Exposure to second hand smoke: No Drug Use: none Patient Lives Alone: Yes - Female History Hx Last Menstrual Period: sep 2021 Hx Now: No - Nursing Vital Signs Nursing Vital Signs: Initial Vital Signs Temperature 98.6 F 08/04/22 02:43 Pulse Rate 74 08/04/22 02:43 Respiratory Rate 18 08/04/22 02:43 Blood Pressure 140/85 08/04/22 02:43 O2 Sat by Pulse Oximetry 99 08/04/22 02:43 Pain Scale Pain Intensity 8 - [place] Coma Score Best Eye Response ([place]): (4) open spontaneously Best Verbal Response (Micheal): (5) oriented Best Motor Response (Micheal): (6) obeys commands [place] Total: 15 - Physical Exam General Appearance: no apparent distress Head Injury: tenderness (left occipital region), No active bleeding, No ecchymosis, No lacerations, No swelling Eye Exam: bilateral eye: normal inspection, PERRL, EOMI, photophobia, vision changes (Blurry vision) ENT Exam: airway nml Neck Exam: supple, trachea midline, full range of motion, normal inspection Back Exam: No vertebral tenderness Mental Status Exam: alert, oriented x 3, 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 Exam: normal hearing, normal speech, PERRL Coordination/Gait Exam: normal gait, normal cerebellar function, negative Romberg's sign Motor/Sensory Exam: no motor deficit, no sensory deficit, no pronator drift, CN II-XII intact DTR Exam: bicep (R): 2+, bicep (L): 2+, knee (R): 2+, knee (L): 2+ Skin Exam: normal color SpO2 Interpretation: normal SpO2: 99 O2 Delivery: Room Air Ordered Tests: Active Orders 24 hr Category Date Time Status HCG,QUALITATIVE URINE Stat Lab 08/04/22 03:22 Completed Medication Summary Discontinued Medications Generic Name Dose Route Start Last Admin Trade Name Freq PRN Reason Stop Dose Admin Acetaminophen 650 mg 08/04/22 03:15 08/04/22 03:20 Acetaminophen 325 Mg Tablet PO 08/04/22 03:16 650 mg STAT ONE Administration Acetaminophen Confirm 08/04/22 03:19 Acetaminophen 325 Mg Tablet Administered 08/04/22 03:20 Dose 650 mg .ROUTE .STK-MED ONE Ondansetron HCl 4 mg 08/04/22 03:15 08/04/22 03:20 Zofran 4 Mg/Udtablet Orally Disintegrating PO 08/04/22 03:16 4 mg STAT ONE Administration Ondansetron HCl Confirm 08/04/22 03:19 Zofran 4 Mg/Udtablet Orally Disintegrating Administered 08/04/22 03:20 Dose 4 mg .ROUTE .STK-MED ONE Lab/Rad Data: Laboratory Results 08/04/22 Range/Units 03:22 Urine HCG, Qual NEGATIVE (Negative) - Progress Progress: improved Progress Note: This patient presents with a headache most consistent with a concussion. No headache red flags. Neurologic exam without evidence of meningismus, focal neurologic findings. Presentation not consistent with acute intracranial bleed to include SAH (lack of risk factors, headache history). Presentation not consistent with acute S[employer]OL [employer]INCIPAL infection to include meningitis or brain abscess, Temporal arteritis unlikely, as is acute angle closure glaucoma given history and physical findings. Presentation not consistent with other acute, emergent causes of headache at this time. Plan to treat symptomatically with pain medication. No indication for imaging at this time. Plan: pain medication, antiemetic, serial reassessment 08/04/22 03:29 Will see patient in: office Counseled pt/family regarding: diagnosis, need for follow-up - Departure Clinical Impression: Concussion Condition: Good Critical Care Time: No Referrals: CARLEEN PALMER NP [Primary Care Provider] - Follow Up with PCP/3 days Instructions: Concussion, Adult (DC) Additional Instructions: Avoid NSAIDs such as Ibuprofen, Naproxen for the next 72 hours.
[2022-08-04 03:46] VITALS: BP 126/62; PULSE 70
== END 2022-08-04 03:46 | disposition home or self-care (01) ==
LOC: ED 02:33
DX: S06.0X0A Concussion without loss of consciousness, initial encounter (principal); W22.01XA Walked into wall, initial encounter; Y92.240 Courthouse as the place of occurrence of the external cause; R51.9 Headache, unspecified; H53.8 Other visual disturbances; R11.0 Nausea; R42 Dizziness and giddiness
CPT/HCPCS: 81025; 99283; Q0162; A9270-GY

== ENCOUNTER 2023-02-19 23:36 | Emergency (ER) | payer MEDICAID ==
[2023-02-20] MEDS ORDERED: TYLENOL 325 MG PO ONE (00:17)
[2023-02-20] MEDS ORDERED: TYLENOL 325 MG ONE (00:20)
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
[2023-02-20 02:11] VITALS: BP 136/62; PULSE 84
[2023-02-20 02:17] VITALS: O2SAT 99
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
== END 2023-02-20 02:21 | disposition home or self-care (01) ==
LOC: ED 23:36
DX: S00.03XA Contusion of scalp, initial encounter (principal); S20.211A Contusion of right front wall of thorax, initial encounter; V40.6XXA Car passenger injured in collision with pedestrian or animal in traffic accident, initial encounter; Z72.0 Tobacco use
CPT/HCPCS: 70450; 71250; 99285; A9270-GY

== ENCOUNTER 2023-02-22 11:48 | Emergency (ER) | payer MEDICAID ==
[2023-02-22 13:20] VITALS: BP 120/70
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
[2023-02-22 13:43] VITALS: PULSE 76; O2SAT 98
== END 2023-02-22 13:46 | disposition home or self-care (01) ==
LOC: ED 11:48
DX: M54.2 Cervicalgia (principal); F07.81 Postconcussional syndrome; M54.6 Pain in thoracic spine; M54.50 Low back pain, unspecified; M25.531 Pain in right wrist; Z79.899 Other long term (current) drug therapy; Z72.0 Tobacco use; Z79.891 Long term (current) use of opiate analgesic
CPT/HCPCS: 72050; 72072; 72110; 73110; 99283

== ENCOUNTER 2025-05-17 22:12 | Emergency (ER) | payer BC ==
[2025-05-17 22:31] VITALS: TEMP 97.8
--- NOTE | 2025-05-17 22:37 | ERPHSYRPT ---
- History of Present Illness Time Seen by Provider: 05/17/25 22:37 Historian: patient Exam Limitations: no limitations Patient Subjective Stated Complaint: pt reports left rib pain as well as bilateral upper abdominal pain starting yesterday. pt denies any accident or injury. describes the pain as intermittent in nature, states it is sharp and at onsent she becomes diaphoretic and nauseated. reports a normal BM yesterday. states she did eat dinner this evening. Triage Nursing Assessment: pt is aox3, pupils perrl, afebrile, resps easy and non labored, cap refill < 3 seconds, abd soft, non tender, bowel sounds present and normoactive x 4, pt skin pink warm dry. Physician History: pt reports left rib pain as well as bilateral upper abdominal pain starting yesterday. pt denies any accident or injury. describes the pain as intermittent in nature, states it is sharp and at onsent she becomes diaphoretic and nauseated. reports a normal BM yesterday. states she did eat dinner this evening. Denies urinary sxs. No worse with activity or food. No fevers. No recent illness. Timing/Duration: yesterday Activities at Onset: none Quality: sharpness, stabbing Abdominal Pain Onset Location: RUQ Pain Radiation: no radiation Severity of Pain-Max: moderate Severity of Pain-Current: moderate Modifying Factors: Improves With: nothing Previous symptoms: no prior history Allergies/Adverse Reactions: nickel Allergy (Verified 05/17/25 22:32) Home Medications: No Reportable Medications [No Reported Medications] 05/18/25 [History] Hx Tetanus, Diphtheria Vaccination/Date Given: Yes Hx Influenza Vaccination/Date Given: No Hx Pneumococcal Vaccination/Date Given: No Immunizations Up to Date: Yes Travel Risk - International Travel Have you traveled outside of the country in past 3 weeks: No - Emerging Infectious Disease Are you exhibiting symptoms associated with any current EIDs: No - Review of Systems All Other Systems: Reviewed and Negative - Past Medical History Pertinent Past Medical History: Yes Neurological History: No Pertinent History ENT History: No Pertinent History Cardiac History: No Pertinent History Respiratory History: No Pertinent History Endocrine Medical History: No Pertinent History Musculoskeletal History: No Pertinent History GI Medical History: No Pertinent History History: No Pertinent History Psycho-Social History: Anxiety, Depression Female Reproductive Disorders: No Pertinent History - Past Surgical History Past Surgical History: No Neuro Surgical History: No Pertinent History Cardiac: No Pertinent History Respiratory: No Pertinent History Gastrointestinal: No Pertinent History Genitourinary: No Pertinent History Musculoskeletal: No Pertinent History Female Surgical History: No Pertinent History - Female History Hx Last Menstrual Period: 05/17/25 Hx Now: No - Social History Smoking Status: Current every day smoker Exposure to second hand smoke: Yes Drug Use: none - Social Determinants of Health Will the patient participate in the screening: Yes Do you worry about a steady place to live?: No Do you have any problems with any of the following?: No known problems In the past 12 months,have you had to go without utilities?: No Transportation Issues: No Has anyone in your support network made you feel unsafe?: No Have you or anyone in your house had to go w/o enough food: No - Nursing Vital Signs Nursing Vital Signs: Initial Vital Signs Temperature 97.8 F 05/17/25 22:19 Pulse Rate 63 05/17/25 22:19 Respiratory Rate 18 05/17/25 22:19 Blood Pressure 124/90 05/17/25 22:19 O2 Sat by Pulse Oximetry 99 05/17/25 22:19 Pain Scale Pain Intensity 4 - Physical Exam General Appearance: no apparent distress, thin Respiratory Exam: lungs clear, airway intact, No respiratory distress Cardiovascular Exam: regular rate/rhythm, normal heart sounds, capillary refill <2 sec Gastrointestinal/Abdomen Exam: soft, normal bowel sounds, tenderness (ruq), No guarding, No rebound Neurologic Exam: alert, oriented x 3, cooperative SpO2 Interpretation: normal SpO2: 99 O2 Delivery: Room Air - Course Nursing assessment & vital signs reviewed: Yes Ordered Tests: Active Orders 24 hr Category Date Time Status ABDOMEN AND PELVIS W/0 CONTRAS [CT] Stat Exams 05/17/25 22:38 Completed CBC W DIFF Stat Lab 05/17/25 22:58 Completed CMP Stat Lab 05/17/25 22:58 Completed HCG QUALITATIVE, URINE Stat Lab 05/17/25 22:59 Completed LIPASE Stat Lab 05/17/25 22:58 Completed Lactic Acid Stat Lab 05/17/25 22:55 Completed Manual Differential NC Stat Lab 05/17/25 22:58 Completed UA W/RFX UR CULTURE Stat Lab 05/17/25 22:42 Completed Medication Summary Discontinued Medications Generic Name Dose Route Start Last Admin Trade Name Freq PRN Reason Stop Dose Admin Acetaminophen 1,000 mg 05/17/25 23:48 05/17/25 23:51 Acetaminophen 500 Mg Tablet PO 05/17/25 23:49 1,000 mg STAT STA Administration Acetaminophen Confirm 05/17/25 23:51 Acetaminophen 500 Mg Tablet Administered 05/17/25 23:52 Dose 1,000 mg .ROUTE .STK-MED ONE Hydrocodone Bitart/Acetaminophen 1 tab 05/17/25 23:30 05/17/25 23:48 Hydrocodone/Apap 5/325 1 Tab Tablet PO 05/17/25 23:31 Not Given STAT ONE Ketorolac Tromethamine 30 mg 05/17/25 22:39 05/17/25 22:43 Ketorolac Tromethamine 30 Mg/Ml Inj IM 05/17/25 22:40 30 mg STAT ONE Administration Ketorolac Tromethamine Confirm 05/17/25 22:42 Ketorolac Tromethamine 30 Mg/Ml Inj Administered 05/17/25 22:43 Dose 30 mg .ROUTE .STK-MED ONE Lab/Rad Data: Laboratory Result Diagrams 05/17/25 22:58 05/17/25 22:58 Laboratory Results 05/17/25 05/17/25 05/17/25 Range/Units 22:59 22:59 22:58 WBC (3.98-10.04) x10^3/uL RBC (3.93-5.22) x10^6/uL Hgb (11.2-15.7) g/dL Hct (34.1-44.9) % MCV (79.4-94.8) fL MCH (25.6-32.2) pg MCHC (32.2-35.5) g/dL RDW (11.7-14.4) % Plt Count (182-369) x10^3/uL MPV (9.4-12.3) fL Segmented Neutrophils (34.0-71.1) % Band Neutrophils (0.0-2.0) % Lymphocytes (Manual) (19.3-51.7) % Monocytes (Manual) (4.7-12.5) % Eosinophils (Manual) (0.7-5.8) % Atypical Lymphocytes % Platelet Estimate (NORMAL) RBC Morphology Sodium 138 (135-145) mmol/L Potassium 3.6 (3.5-5.1) mmol/L Chloride 105 (98-107) mmol/L Carbon Dioxide 25 (22-30) mmol/L Anion Gap 11.0 (5-15) MEQ/L BUN 9 (7-17) mg/dL Creatinine 0.70 (0.52-1.04) mg/dL Estimated GFR 124.6 ML/MIN Glucose 96 (74-106) mg/dL Lactic Acid (0.4-2.0) Calcium 9.2 (8.4-10.2) mg/dL Total Bilirubin < 0.10 L (0.2-1.3) mg/dL AST 24 (14-36) U/L ALT 14 (0-35) U/L Alkaline Phosphatase 70 (38-126) U/L Serum Total Protein 7.3 (6.3-8.2) g/dL Albumin 4.1 (3.5-5.0) g/dL Lipase 80 (23-300) U/L Urine Color (Yellow) Urine Appearance (Clear) Urine pH (4.6-8.0) Ur Specific [place] (1.005-1.030) Urine Protein (Negative) Urine Glucose (UA) (Negative) mg/dL Urine Ketones (Negative) Urine Blood (Negative) Urine Nitrite (Negative) Urine Bilirubin (Negative) Urine Urobilinogen (0.2) mg/dL Ur Leukocyte Esterase (Negative) U Hyaline Cast (Auto) (0-2) /LPF Urine Microscopic RBC (0-5) /HPF Urine Microscopic WBC (0-5) /HPF Ur Epithelial Cells (None Seen) /HPF Urine Bacteria (None Seen) /HPF Urine Culture Reflexed (NO) Urine HCG, Qual NEGATIVE (NEGATIVE) Chlamydia DNA Probe NOT DETECTED (NEGATIVE) N.gonorrhoeae DNA Probe NOT DETECTED (NEGATIVE) 05/17/25 05/17/25 05/17/25 Range/Units 22:58 22:55 22:42 WBC 7.2 (3.98-10.04) x10^3/uL RBC 4.31 (3.93-5.22) x10^6/uL Hgb 12.7 (11.2-15.7) g/dL Hct 39.0 (34.1-44.9) % MCV 90.5 (79.4-94.8) fL MCH 29.5 (25.6-32.2) pg MCHC 32.6 (32.2-35.5) g/dL RDW 12.1 (11.7-14.4) % Plt Count 263 (182-369) x10^3/uL MPV 9.3 L (9.4-12.3) fL Segmented Neutrophils 56 (34.0-71.1) % Band Neutrophils 1 (0.0-2.0) % Lymphocytes (Manual) 28 (19.3-51.7) % Monocytes (Manual) 10 (4.7-12.5) % Eosinophils (Manual) 2 (0.7-5.8) % Atypical Lymphocytes 3 % Platelet Estimate NORMAL (NORMAL) RBC Morphology NORMAL Sodium (135-145) mmol/L Potassium (3.5-5.1) mmol/L Chloride (98-107) mmol/L Carbon Dioxide (22-30) mmol/L Anion Gap (5-15) MEQ/L BUN (7-17) mg/dL Creatinine (0.52-1.04) mg/dL Estimated GFR ML/MIN Glucose (74-106) mg/dL Lactic Acid 0.6 (0.4-2.0) Calcium (8.4-10.2) mg/dL Total Bilirubin (0.2-1.3) mg/dL AST (14-36) U/L ALT (0-35) U/L Alkaline Phosphatase (38-126) U/L Serum Total Protein (6.3-8.2) g/dL Albumin (3.5-5.0) g/dL Lipase (23-300) U/L Urine Color Yellow (Yellow) Urine Appearance Cloudy A (Clear) Urine pH 5.5 (4.6-8.0) Ur Specific [place] 1.010 (1.005-1.030) Urine Protein Negative (Negative) Urine Glucose (UA) Negative (Negative) mg/dL Urine Ketones Negative (Negative) Urine Blood Negative (Negative) Urine Nitrite Negative (Negative) Urine Bilirubin Negative (Negative) Urine Urobilinogen 0.2 (0.2) mg/dL Ur Leukocyte Esterase Negative (Negative) U Hyaline Cast (Auto) NONE SEEN (0-2) /LPF Urine Microscopic RBC 0-2 (0-5) /HPF Urine Microscopic WBC 0-2 (0-5) /HPF Ur Epithelial Cells None Seen (None Seen) /HPF Urine Bacteria None Seen (None Seen) /HPF Urine Culture Reflexed NO (NO) Urine HCG, Qual (NEGATIVE) Chlamydia DNA Probe (NEGATIVE) N.gonorrhoeae DNA Probe (NEGATIVE) - Progress Progress: improved Progress Note: 05/18/25 00:40 Patient presents to the emergency room with left-sided rib pain and bilateral upper quadrant abdominal pain. On exam pain most pronounced in the right upper quadrant. Labs unremarkable. UA negative. CT abdomen pelvis shows gallbladder sludge without signs of acute cholecystitis. With normal white count and normal liver function patient would benefit from outpatient workup with right upper quadrant ultrasound and possible HIDA scan to determine if cholecystectomy is warranted. Recommend [id number] anti-inflammatories and Tylenol as needed for discomfort. Avoid fatty foods. Return to the ER if needed. Counseled pt/family regarding: lab results, diagnosis, need for follow-up, rad results Medical Desision Making - Diagnostic Testing Diagnostic test were ordered, analyzed, and reviewed by me: Yes Radiological Interpretation: Interpreted by me - Risk of complications The pt has a mod risk of morbidity or mortality based on: Need for prescription drug management - Departure Departure Disposition: Home Clinical Impression: Gallbladder sludge, RUQ abdominal pain Condition: Stable Critical Care Time: No Referrals: CARLEEN PALMER [facility] [employer] [Primary Care Provider, UNKNOWN] - Follow up/PCP as directed Instructions: Gallstones - ED discharge instructions
[2025-05-17] MEDS ORDERED: TORAdol 30 mg Injection ONE (22:42)
[2025-05-17] MEDS: TORAdol 30 mg Injection IM ONE (22:43)
[2025-05-17 23:01] LABS: Hematocrit 39.0 % (34.1-44.9); Hemoglobin 12.7 g/dL (11.2-15.7); Mean Corpuscular Hemoglobin 29.5 pg (25.6-32.2); Mean Corpuscular Hgb Concent. 32.6 g/dL (32.2-35.5); Platelet Count 263 x10^3/uL (182-369); Red Blood Count 4.31 x10^6/uL (3.93-5.22); White Blood Count 7.2 x10^3/uL (3.98-10.04)
[2025-05-17 23:03] LABS: HCG URINE TEST NEGATIVE (NEGATIVE)
[2025-05-17 23:16] LABS: Calcium 9.2 mg/dL (8.4-10.2); Carbon Dioxide 25 mmol/L (22-30); Creatinine 1 0.70 mg/dL (0.52-1.04); EST GLOMERULAR FILTRATION RATE 124.6 ML/MIN; Glucose 96 mg/dL (74-106); Potassium 3.6 mmol/L (3.5-5.1); SGOT/AST 24 U/L (14-36); SGPT/ALT 14 U/L (0-35); Total Protein 7.3 g/dL (6.3-8.2)
[2025-05-17 23:35] LABS: Glucose, Urine Negative (Negative); Protein,Urine Dip Negative (Negative); RBC 0-2 /HPF (0-5); WBC 0-2 /HPF (0-5)
[2025-05-17 23:36] LABS: BAND 1 % (0.0-2.0); Total Cells Counted 100
[2025-05-17] MEDS: NORCO 5/325 MG PO ONE (23:48)
[2025-05-17] MEDS: TYLENOL EXTRA STRENGTH 500 MG PO STA (23:51)
[2025-05-17] MEDS ORDERED: TYLENOL EXTRA STRENGTH 500 MG ONE (23:51)
[2025-05-18 00:04] VITALS: BP 108/77; PULSE 62; RESP 17
[2025-05-18 00:31] LABS: CHLAMYDIA DNA NOT DETECTED (NEGATIVE)
--- NOTE | 2025-05-18 00:31 | XRAY ---
CLINICAL HISTORY: abd pain COMPARISON: TECHNIQUE: Contiguous axial images were obtained from the level of the diaphragm to the pubic symphysis without intravenous or oral contrast. Coronal and sagittal reconstructions were also performed to increase the sensitivity for detecting clinically relevant pathology. CT scan was performed according to ALARA (as low as reasonably achievable). FINDINGS: The visualized lung bases are clear. Evaluation of the abdominal and pelvic visceral organs is limited without intravenous contrast. The unenhanced liver, spleen, pancreas, and adrenal glands are grossly unremarkable. The gallbladder is well distended; mild hyperdensity is noted within. The kidneys are normal in size and attenuation without obvious calcification. There is no hydronephrosis or perinephric stranding. The ureters are normal in caliber. No adenopathy or fluid collections are seen. The large bowel loops are distended with fecal material and gas. No evidence of focal or diffuse bowel wall thickening or evidence of bowel obstruction is seen. No features of inflamed appendix. The aorta is normal in caliber. The urinary bladder is normal in contour. The pelvic viscera are grossly unremarkable. Intravaginal tampon in situ. No aggressive-appearing osseous lesions are identified. IMPRESSION: Mild hyperdensity within the gallbladder; this was also seen in the prior study and could represent cholelithiasis or sludge. Suggest ultrasound correlation. No acute intra-abdominal abnormality detected. Electronically Signed by: Shadi Ruth MD. (05/18/2025 00:29:41 EDT)
[2025-05-18 00:38] VITALS: O2SAT 99
== END 2025-05-18 00:43 | disposition home or self-care (01) ==
LOC: ED 22:12
DX: K82.8 Other specified diseases of gallbladder (principal); R10.11 Right upper quadrant pain; R07.81 Pleurodynia; Z72.0 Tobacco use